=== PATIENT | male | born 1945 | race Hispanic/Latino ===

== ENCOUNTER 2017-07-25 16:00 | Inpatient (IN) | payer OTHER ==
[~2017-07-25] VITALS: Ht 162.6 cm; Wt 79.2 kg
[~2017-07-25 16:00] MED LIST: METF850T2 PO; SIMV40TA5 PO
[2017-07-25 16:40] VITALS: BP 146/72
[2017-07-25 16:41] LABS: APPEARANCE,URINE Clear (CLEAR); BILIRUBIN,URINE Negative (NEGATIVE); COLOR,URINE Yellow (YELLOW); GLUCOSE, URINE (UA) Negative (NEGATIVE); KETONES,URINE Negative (NEGATIVE); LEUKOCYTE ESTERASE ,URINE Negative (NEGATIVE); NITRATE,URINE Negative (NEGATIVE); OCCULT BLOOD,URINE Negative (NEGATIVE); PH,URINE 5.5 (5.0-8.0); PROTEIN,URINE Negative (NEGATIVE); UROBILINOGEN,URINE 0.2 mg/dL (0.2-1.0)
[2017-07-26] VITALS (22 sets, daily range): BP systolic 123–149; BP diastolic 53–86
[2017-07-26] MEDS ORDERED: WATER FOR INJECTION,STERILE 20 ML VIAL IJ ONE (08:00)
[2017-07-26] MEDS ORDERED: CEFAZOLIN SODIUM 1 GM VIAL IVP ONE (08:00)
[2017-07-26] MEDS ORDERED: SODIUM CHLORIDE 0.9% 1000ML 1,000 ML IV ONE (10:04)
[2017-07-26] MEDS ORDERED: CEFAZOLIN SODIUM 1 GM VIAL ONE ×3 (10:04→17:55)
[2017-07-26] MEDS ORDERED: WATER FOR INJECTION,STERILE 20 ML VIAL ONE ×2 (10:05→17:55)
[2017-07-26] MEDS ORDERED: KETOROLAC TROMETHAMINE 15MG/ML ONE (10:41)
[2017-07-26] MEDS ORDERED: ACETAMINOPHEN EXTRA STRENGTH 500 MG TABLET ONE (10:41)
[2017-07-26] MEDS ORDERED: CELECOXIB 200 MG CAP ONE (10:42)
[2017-07-26] MEDS ORDERED: OXYCODONE HCL 10 MG TAB.SR.12H PO ONE (10:42)
[2017-07-26] MEDS ORDERED: DEXAMETHASONE SOD PHOSPHATE 10MG/ML 1ML VIAL ONE (11:52)
[2017-07-26] MEDS ORDERED: ONDANSETRON HCL 4 MG/2 ML VIAL ONE (11:52)
[2017-07-26] MEDS ORDERED: MIDAZOLAM HCL 1 MG/ML 2ML VIAL ONE (11:52)
[2017-07-26] MEDS ORDERED: PROPOFOL 10 MG/ML 20ML VIAL IV ONE (11:52)
[2017-07-26] MEDS ORDERED: FENTANYL CITRATE PF 50 MCG/1 ML 2ML VIAL ONE (11:52)
[2017-07-26] MEDS ORDERED: LIDOCAINE PF 2% 5ML ABBOJECT ONE (11:52)
[2017-07-26] MEDS ORDERED: GLYCOPYRROLATE 0.2 MG/ML 5 ML VIAL ONE (11:52)
[2017-07-26] MEDS ORDERED: BUPIVACAINE/EPI/PF 0.25% 30ML VIAL IJ ONE (11:53)
[2017-07-26] MEDS ORDERED: TRANEXAMIC ACID 1000MG/10ML IV ONE ×2 (11:54)
[2017-07-26] MEDS ORDERED: DiphenhydrAMINE HCL 50 MG/ML VIAL IVP PRN (13:45)
[2017-07-26] MEDS ORDERED: KETOROLAC TROMETHAMINE 15MG/ML IV PRN (13:45)
[2017-07-26] MEDS ORDERED: OXYCODONE HCL 5 MG TAB PO PRN (13:45)
[2017-07-26] MEDS ORDERED: DIPHENHYDRAMINE HCL 25 MG CAPSULE PO PRN (13:45)
[2017-07-26] MEDS ORDERED: CALCIUM CARBONATE 500 MG TABLET PO PRN (13:45)
[2017-07-26] MEDS ORDERED: POTASSIUM CHLORIDE 20 MEQ ERTAB PO PRN (13:45)
[2017-07-26] MEDS ORDERED: PROMETHAZINE HCL 25 MG/ML 1ML AMPULE IM PRN (13:45)
[2017-07-26] MEDS ORDERED: TRAMADOL HCL 50 MG TABLET PO PRN (13:45)
[2017-07-26] MEDS ORDERED: LIDOCAINE HCL-MPF 1% 2ML VIAL IVP PRN (13:45)
[2017-07-26] MEDS ORDERED: TEMAZEPAM 15 MG CAPSULE PO PRN (13:45)
[2017-07-26] MEDS: ACETAMINOPHEN 325 MG TAB PO SCH ×2 (13:45→17:54)
[2017-07-26] MEDS ORDERED: POTASSIUM CHLORIDE 10% ELIXIR 20 MEQ/15 ML UDCUP PO PRN (13:45)
[2017-07-26] MEDS ORDERED: FERROUS FUMARATE 324 MG TABLET PO PRN (13:45)
[2017-07-26] MEDS ORDERED: POTASSIUM CHLORIDE 20MEQ/100ML 100 ML IV PRN (13:45)
[2017-07-26] MEDS: SODIUM CHLORIDE 0.9% 1000ML 1,000 ML IV SCH ×2 (15:44→23:34)
[2017-07-26] MEDS: INSULIN HUMULIN R 100 UNIT/ML 3ML SQ SCH ×2 (16:30→21:22)
[2017-07-26] MEDS: METFORMIN HCL 850 MG TABLET PO SCH (17:54)
[2017-07-26] MEDS: CEFAZOLIN SODIUM 1 GM VIAL IVP SCH (17:59)
[2017-07-26] MEDS ORDERED: CEFAZOLIN 2GM / 50 ML 50 ML IV SCH (18:45)
[2017-07-26] MEDS: CELECOXIB 200 MG CAP PO SCH (19:53)
[2017-07-26] MEDS: ASPIRIN 325 MG TABLET PO SCH (19:54)
[2017-07-26] MEDS: FAMOTIDINE 20MG TAB 20 MG TAB PO SCH (19:54)
[2017-07-26] MEDS: PREGABALIN 75 MG CAPSULE PO SCH (19:54)
[2017-07-27] VITALS: BP 134/72
[2017-07-27] MEDS: ACETAMINOPHEN 325 MG TAB PO SCH ×4 (03:07→20:37)
[2017-07-27] MEDS: CEFAZOLIN SODIUM 1 GM VIAL IVP SCH (03:08)
[2017-07-27 04:00] VITALS: BP 139/68
[2017-07-27 05:33] LABS: HEMATOCRIT 36.3 % (42-54); MEAN CORPUSCULAR HEMOGLOBIN 30.3 pg (27.0-33.0); MEAN CORPUSCULAR VOLUME 86.5 fL (79-99); PLATELET COUNT (AUTO) 233 K/uL (130-400); RED CELL DISTRIBUTION WIDTH 13.1 % (11.0-15.5); WHITE BLOOD COUNT (AUTO) 16.5 K/uL (4.8-10.8)
[2017-07-27 05:40] LABS: CREATININE 0.9 mg/dL (0.5-1.5); POTASSIUM 3.9 mmol/L (3.5-5.1)
[2017-07-27] MEDS: INSULIN HUMULIN R 100 UNIT/ML 3ML SQ SCH ×4 (06:02→21:00)
[2017-07-27] MEDS: POLYETHYLENE GLYCOL 3350 17 GM POWD.PACK PO SCH (08:10)
[2017-07-27] MEDS: ATORVASTATIN CALCIUM 20 MG TABLET PO SCH (08:10)
[2017-07-27] MEDS: CELECOXIB 200 MG CAP PO SCH ×2 (08:10→20:37)
[2017-07-27] MEDS: ASPIRIN 325 MG TABLET PO SCH ×2 (08:10→20:37)
[2017-07-27] MEDS: FAMOTIDINE 20MG TAB 20 MG TAB PO SCH ×2 (08:10→20:37)
[2017-07-27] MEDS: PREGABALIN 75 MG CAPSULE PO SCH ×2 (08:10→20:37)
[2017-07-27] MEDS: METFORMIN HCL 850 MG TABLET PO SCH ×2 (08:17→16:33)
[2017-07-27] MEDS: OXYCODONE HCL 5 MG TAB PO PRN ×2 (08:18→14:28)
[2017-07-27 08:51] VITALS: BP 148/68
[2017-07-27] MEDS: TAMSULOSIN HCL 0.4 MG CAP.ER.24H PO SCH (09:00)
[2017-07-27] MEDS: SODIUM CHLORIDE 0.9% 1000ML 1,000 ML IV SCH (09:44)
[2017-07-27 11:26] VITALS: BP 127/63
[2017-07-27] MEDS: PSYLLIUM SEED 1 EACH PACKET PO SCH (12:46)
[2017-07-27 16:19] VITALS: BP 130/79
[2017-07-27 19:00] VITALS: BP 148/78
[2017-07-28 00:10] VITALS: BP 138/74
[2017-07-28] MEDS: ACETAMINOPHEN 325 MG TAB PO SCH ×3 (02:14→14:09)
[2017-07-28 04:00] VITALS: BP 117/70
[2017-07-28 05:51] LABS: HEMATOCRIT 33.2 % (42-54); MEAN CORPUSCULAR HEMOGLOBIN 29.4 pg (27.0-33.0); MEAN CORPUSCULAR HGB CONC 34.4 g/dL (32.0-36.0); MEAN CORPUSCULAR VOLUME 85.6 fL (79-99); PLATELET COUNT (AUTO) 203 K/uL (130-400); RED BLOOD CELL COUNT(AUTO) 3.88 MIL/uL (4.50-6.20); RED CELL DISTRIBUTION WIDTH 13.3 % (11.0-15.5); WHITE BLOOD COUNT (AUTO) 11.3 K/uL (4.8-10.8)
[2017-07-28 06:06] LABS: CREATININE 0.8 mg/dL (0.5-1.5); POTASSIUM 3.6 mmol/L (3.5-5.1)
[2017-07-28 06:58] VITALS: BP 120/75
[2017-07-28] MEDS: INSULIN HUMULIN R 100 UNIT/ML 3ML SQ SCH ×3 (07:06→17:15)
[2017-07-28] MEDS: FAMOTIDINE 20MG TAB 20 MG TAB PO SCH (08:09)
[2017-07-28] MEDS: CELECOXIB 200 MG CAP PO SCH (08:09)
[2017-07-28] MEDS: PREGABALIN 75 MG CAPSULE PO SCH (08:09)
[2017-07-28] MEDS: ATORVASTATIN CALCIUM 20 MG TABLET PO SCH (08:09)
[2017-07-28] MEDS: POLYETHYLENE GLYCOL 3350 17 GM POWD.PACK PO SCH (08:09)
[2017-07-28] MEDS: ASPIRIN 325 MG TABLET PO SCH (08:09)
[2017-07-28] MEDS: TAMSULOSIN HCL 0.4 MG CAP.ER.24H PO SCH (08:10)
[2017-07-28] MEDS: OXYCODONE HCL 5 MG TAB PO PRN (08:11)
[2017-07-28] MEDS: METFORMIN HCL 850 MG TABLET PO SCH ×2 (09:05→17:14)
[2017-07-28 11:00] VITALS: BP 110/73
[2017-07-28] MEDS: PSYLLIUM SEED 1 EACH PACKET PO SCH (11:43)
[2017-07-28] MEDS ORDERED: BISACODYL 5 MG TABLET.DR PO PRN (13:45)
[2017-07-28 16:00] VITALS: BP 125/55
[2017-07-28] MEDS ORDERED: HYDR-309 PO (18:15)
[2017-07-28] MEDS ORDERED: ASPI-1012 PO (18:15)
[2017-07-29] MEDS ORDERED: BISACODYL 10 MG SUPP.RECT RC PRN (13:45)
== END 2017-07-28 20:43 | DRG 470 ==
LOC: DAHIP 07-26 09:40 → 4AH 07-26 14:50
PROVIDERS: ADMIT Orthopaedic Surgery; ATTEND Orthopaedic Surgery
PROC: 0SRD0J9 Replacement of Left Knee Joint with Synthetic Substitute, Cemented, Open Approach (ICD-10-PCS; principal; 2017-07-26 11:55)
DX: M17.12 Unilateral primary osteoarthritis, left knee (principal); E11.9 Type 2 diabetes mellitus without complications; E78.5 Hyperlipidemia, unspecified; Z83.3 Family history of diabetes mellitus
CPT/HCPCS: 36415; 80048; 81003; 82948; 85027; 96374; A4218; C1713; J0690; J1100; J1815; J1885; J2001; J2250; J2405; J2704; J3010; J3490; J7030

== ENCOUNTER 2017-11-17 06:41 | Day surgery (SDC) | payer OTHER ==
[2017-11-16 16:19] VITALS: BP 139/72
[2017-11-17] VITALS (15 sets, daily range): BP systolic 109–138; BP diastolic 58–73
[~2017-11-17] VITALS: Ht 162.6 cm; Wt 44.5 kg
[2017-11-17] MEDS: CEFAZOLIN SODIUM 1 GM VIAL IVP SCH ×2 (06:00→09:10)
[~2017-11-17 06:41] MED LIST changes: +ASPI-1012 PO; +HYDR-309 PO
[2017-11-17] MEDS ORDERED: SODIUM CHLORIDE 0.9% 1000ML 1,000 ML IV ONE (08:13)
[2017-11-17] MEDS ORDERED: PROPOFOL 10 MG/ML 20ML VIAL IV ONE (08:14)
[2017-11-17] MEDS ORDERED: FENTANYL CITRATE PF 50 MCG/1 ML 5ML AMP IV ONE (08:15)
[2017-11-17] MEDS ORDERED: MIDAZOLAM HCL 1 MG/ML 2ML VIAL ONE (08:15)
[2017-11-17] MEDS ORDERED: ROPIVACAINE 0.5% 5MG/ML 30ML IJ ONE (08:16)
[2017-11-17] MEDS ORDERED: TERB250T51 PO (08:48)
[2017-11-17] MEDS ORDERED: CEFAZOLIN SODIUM 1 GM VIAL ONE (10:03)
[2017-11-17] MEDS ORDERED: NAPR-1192 PO (11:32)
[2017-11-17] MEDS ORDERED: CEPH500B PO (11:32)
[2017-11-17] MEDS ORDERED: MEPERIDINE-PF 25 MG/ML SYG ONE ×2 (11:46→12:00)
== END 2017-11-17 13:30 | disposition home or self-care (01) ==
LOC: DAH 06:41
PROVIDERS: ATTEND Orthopaedic Surgery
DX: M75.102 Unspecified rotator cuff tear or rupture of left shoulder, not specified as traumatic (principal); M19.012 Primary osteoarthritis, left shoulder; M75.42 Impingement syndrome of left shoulder; E66.9 Obesity, unspecified; E11.9 Type 2 diabetes mellitus without complications; E78.5 Hyperlipidemia, unspecified; M19.90 Unspecified osteoarthritis, unspecified site; Z98.890 Other specified postprocedural states; Z79.899 Other long term (current) drug therapy; G89.29 Other chronic pain
CPT/HCPCS: 23120; 23412; 82948 ×2; A4218; A4565; A4649 ×3; A4930 ×2; A6204; C1763; G0168; J0690 ×2; J2175 ×2; J2250; J2704; J2795; J3010; J7030 ×2

== ENCOUNTER 2017-12-10 01:18 | Emergency (ER) | payer OTHER ==
[~2017-12-10 01:18] MED LIST changes: -ASPI-1012 PO; +CEPH500B PO; +NAPR-1192 PO; +TERB250T51 PO
[2017-12-10 01:40] LABS: BASOPHILS % (AUTO) 0.6 % (0.0-5.0); EOSINOPHILS % (AUTO) 2.9 % (0.0-8.0); LYMPHOCYTES % (AUTO) 14.9 % (21.0-51.0); MEAN CORPUSCULAR HEMOGLOBIN 28.7 pg (27.0-33.0); MEAN CORPUSCULAR HGB CONC 33.7 g/dL (32.0-36.0); MEAN CORPUSCULAR VOLUME 85.2 fL (79-99); MONOCYTES % (AUTO) 7.3 % (3.0-13.0); NEUTROPHILS % (AUTO) 74.3 % (40.0-77.0); PLATELET COUNT (AUTO) 281 K/uL (130-400); RED BLOOD CELL COUNT(AUTO) 5.16 MIL/uL (4.50-6.20); RED CELL DISTRIBUTION WIDTH 14.1 % (11.0-15.5); WHITE BLOOD COUNT (AUTO) 13.7 K/uL (4.8-10.8)
[2017-12-10 01:41] LABS: APPEARANCE,URINE CLEAR (CLEAR); BILIRUBIN,URINE SMALL (NEGATIVE); COLOR,URINE YELLOW (YELLOW); GLUCOSE, URINE (UA) NEGATIVE (NEGATIVE); KETONES,URINE NEGATIVE (NEGATIVE); LEUKOCYTE ESTERASE ,URINE NEGATIVE (NEGATIVE); NITRATE,URINE NEGATIVE (NEGATIVE); OCCULT BLOOD,URINE LARGE (NEGATIVE); PH,URINE 5.5 (5.0-8.0); PROTEIN,URINE 100 (NEGATIVE)
[2017-12-10 01:55] LABS: INR 0.95 (0.85-1.15); PARTIAL THROMBOPLASTIN TIME 25.5 SEC (26.3-35.5)
[2017-12-10 01:56] LABS: BACTERIA,URINE None Seen /HPF (None Seen); CALCIUM OXALATE CRYSTALS,UR Moderate /LPF (None Seen); MUCUS,URINE Few LPF (None Seen); SQUAMOUS EPITHELIAL CELL,UR Few /HPF (0-2); WBC,URINE 0-1 /HPF (0-1)
[2017-12-10 02:06] LABS: CREATININE 0.9 mg/dL (0.5-1.5); POTASSIUM 3.9 mmol/L (3.5-5.1)
[2017-12-10 02:10] LABS: ALBUMIN 3.7 g/dL (3.5-5.0); BILIRUBIN,TOTAL 0.5 mg/dL (0.2-1.0); CREATINE KINASE MB 1.1 ng/mL (0.5-3.6); TOTAL PROTEIN, SERUM 7.4 g/dL (6.0-8.3)
== END 2017-12-10 04:22 | disposition home or self-care (01) ==
LOC: EDH 01:18
DX: R10.30 Lower abdominal pain, unspecified (principal); R31.9 Hematuria, unspecified; E11.9 Type 2 diabetes mellitus without complications; I10 Essential (primary) hypertension; E78.5 Hyperlipidemia, unspecified; Z79.82 Long term (current) use of aspirin; Z79.899 Other long term (current) drug therapy; Z98.890 Other specified postprocedural states
CPT/HCPCS: 36415; 71045; 74018; 74176; 80053; 81001; 82150; 82550; 82553; 85025; 85610; 85730; 93005

== ENCOUNTER 2021-06-27 23:28 | Emergency (ER) | payer OTHER ==
[~2021-06-27] VITALS: Ht 162.6 cm; Wt 72.6 kg
[~2021-06-27 23:28] MED LIST changes: -CEPH500B PO; -HYDR-309 PO; +METF-445 PO; -METF850T2 PO; -NAPR-1192 PO; +SIMV-46 PO; -SIMV40TA5 PO; +TAMS-1 PO; -TERB250T51 PO
[2021-06-28 00:14] LABS: APPEARANCE,URINE Clear (CLEAR); BILIRUBIN,URINE Negative (NEGATIVE); COLOR,URINE Yellow (YELLOW); GLUCOSE, URINE (UA) 500 mg/dL (NEGATIVE); KETONES,URINE 15 mg/dL (NEGATIVE); LEUKOCYTE ESTERASE ,URINE Negative (NEGATIVE); NITRATE,URINE Negative (NEGATIVE); OCCULT BLOOD,URINE Small (NEGATIVE); PROTEIN,URINE POS 1+ mg/dL (NEGATIVE); UROBILINOGEN,URINE 0.2 mg/dL (0.2-1.0)
[2021-06-28 00:21] LABS: BASOPHILS % (AUTO) 0.3 % (0.0-5.0); EOSINOPHILS % (AUTO) 0.1 % (0.0-8.0); LYMPHOCYTES % (AUTO) 12.3 % (21.0-51.0); MEAN CORPUSCULAR HEMOGLOBIN 29.7 pg (27.0-33.0); MEAN CORPUSCULAR HGB CONC 34.9 g/dL (32.0-36.0); MEAN CORPUSCULAR VOLUME 85.1 fL (79-99); MONOCYTES % (AUTO) 5.1 % (3.0-13.0); NEUTROPHILS % (AUTO) 81.8 % (40.0-77.0); PLATELET COUNT (AUTO) 242 K/uL (130-400); RED BLOOD CELL COUNT(AUTO) 5.52 MIL/uL (4.50-6.20); RED CELL DISTRIBUTION WIDTH 11.9 % (11.0-15.5); WHITE BLOOD COUNT (AUTO) 11.3 K/uL (4.8-10.8)
[2021-06-28 00:29] LABS: CARBON DIOXIDE 25 mmol/L (21-32); CHLORIDE 94 mmol/L (101-111); GLOMERULAR FILTR. RATE CALC 77 mL/min (>60); GLUCOSE,RANDOM 233 mg/dL (70-105); POTASSIUM 3.7 mmol/L (3.5-5.1); SODIUM SERUM 130 mmol/L (136-145); UREA NITROGEN, BLOOD 13 mg/dL (7-18)
[2021-06-28 00:31] LABS: WBC,URINE 0-1 /HPF (0-1)
[2021-06-28 00:32] LABS: BACTERIA,URINE None Seen /HPF (None Seen); MUCUS,URINE Few LPF (None Seen); SQUAMOUS EPITHELIAL CELL,UR Rare /HPF (0-2)
[2021-06-28 00:35] LABS: ALANINE AMINOTRANSFERASE 22 U/L (12-78); ALBUMIN 3.8 g/dL (3.5-5.0); ASPARTATE AMINOTRANSFERASE 15 U/L (10-37); BILIRUBIN,TOTAL 0.6 mg/dL (0.2-1.0); LIPASE < 50 U/L (114-286); TOTAL PROTEIN, SERUM 7.6 g/dL (6.0-8.3)
[2021-06-28] MEDS ORDERED: IOHEXOL 350 MG/ML 100ML INFUS..BTL IV ONE (01:14)
[2021-06-28] MEDS: 0.9%NACL 1000ML 1,000 ML IV ONE (01:15)
[2021-06-28] MEDS: ONDANSETRON 4MG INJ IVP ONE (01:15)
[2021-06-28] MEDS: METOCLOPRAMIDE 10 MG/2 ML VIAL IVP ONE (01:15)
[2021-06-28 01:52] VITALS: BP 150/82
[2021-06-28] MEDS ORDERED: ONDA4TAB10 PO (02:32)
[2021-06-28] MEDS ORDERED: DICY20TA2 PO (02:32)
== END 2021-06-28 02:57 | disposition home or self-care (01) ==
LOC: EDH 23:28
DX: E86.9 Volume depletion, unspecified (principal); R10.9 Unspecified abdominal pain; E11.9 Type 2 diabetes mellitus without complications; E78.00 Pure hypercholesterolemia, unspecified; E78.5 Hyperlipidemia, unspecified; Z79.84 Long term (current) use of oral hypoglycemic drugs; Z79.899 Other long term (current) drug therapy
CPT/HCPCS: 36415; 74177; 80053; 81001; 83690; 85025; 93005; 96374; 96375; 99285; J2405; J2765; Q9967

== ENCOUNTER 2022-09-16 06:48 | Day surgery (SDC) | payer MEDICARE ==
[2022-09-13 13:17] VITALS: BP 140/75
[2022-09-13 13:18] LABS: BASOPHILS % (AUTO) 0.6 % (0.0-5.0); EOSINOPHILS % (AUTO) 1.5 % (0.0-8.0); HEMATOCRIT 45.5 % (42-54); LYMPHOCYTES % (AUTO) 26.1 % (21.0-51.0); MEAN CORPUSCULAR VOLUME 87.8 fL (79-99); MONOCYTES % (AUTO) 10.4 % (3.0-13.0); PLATELET COUNT (AUTO) 203 K/uL (130-400); RED BLOOD CELL COUNT(AUTO) 5.18 MIL/uL (4.50-6.20); RED CELL DISTRIBUTION WIDTH 12.6 % (11.0-15.5); WHITE BLOOD COUNT (AUTO) 8.1 K/uL (4.8-10.8)
[2022-09-13 14:11] LABS: ALBUMIN 3.6 g/dL (3.5-5.0); BILIRUBIN,DIRECT 0.1 mg/dL (0.0-0.3); CREATININE 0.8 mg/dL (0.5-1.5); POTASSIUM 3.9 mmol/L (3.5-5.1); TOTAL PROTEIN, SERUM 6.9 g/dL (6.0-8.3)
[~2022-09-16] VITALS: Ht 162.6 cm; Wt 71.8 kg
[2022-09-16] VITALS (15 sets, daily range): BP systolic 116–157; BP diastolic 50–89
[~2022-09-16 06:48] MED LIST changes: +DONE10TA43 PO
[2022-09-16] MEDS ORDERED: BUPIVACAINE/EPI/PF 0.25% 10ML VIAL IJ ONE (07:57)
[2022-09-16] MEDS ORDERED: 0.9%NACL 1000ML 1,000 ML IV ONE (08:14)
[2022-09-16] MEDS: CEFAZOLIN SODIUM 2 GM VIAL ONE ×2 (08:28→09:30)
[2022-09-16] MEDS ORDERED: MIDAZOLAM HCL 1 MG/ML 2ML VIAL ONE (09:37)
[2022-09-16] MEDS ORDERED: PROPOFOL 10 MG/ML 20ML VIAL IV ONE (09:37)
[2022-09-16] MEDS ORDERED: ROCURONIUM 10MG/1ML SYR 10 MG/ML ML ONE (09:37)
[2022-09-16] MEDS ORDERED: SUCCINYLCHOLINE 200MG/10ML SYR ONE (09:37)
[2022-09-16] MEDS ORDERED: FENTANYL CITRATE PF 50 MCG/1 ML 2ML VIAL ONE (09:38)
[2022-09-16] MEDS ORDERED: EPHEDRINE SULFATE 50 MG/ML AMPULE ONE (09:55)
[2022-09-16] MEDS ORDERED: PHENYLEPHRINE HCL 10 MG/ML 1ML VIAL IV ONE (10:22)
== END 2022-09-16 12:00 | disposition home or self-care (01) ==
LOC: DAH 06:48
PROVIDERS: ATTEND Surgery
DX: L02.212 Cutaneous abscess of back [any part, except buttock and flank] (principal); Z20.822 Contact with and (suspected) exposure to COVID-19; I10 Essential (primary) hypertension; E11.9 Type 2 diabetes mellitus without complications; E78.00 Pure hypercholesterolemia, unspecified; Z98.890 Other specified postprocedural states; Z79.84 Long term (current) use of oral hypoglycemic drugs; Z79.899 Other long term (current) drug therapy
CPT/HCPCS: 87426; 93005; 80076; 80048; 85025; 36415; 11403; 82948 ×2; A6260; A4663; A4606; A4452; J3010; J0330; J7030; J3490 ×2; J2250; J2704; J2370; J0690; A4930; A4215; A4223; A4222; A4221

== ENCOUNTER 2024-10-11 18:17 | Emergency (ER) | payer MEDICARE, OTHER ==
[~2024-10-11] VITALS: Ht 162.6 cm; Wt 68.0 kg
--- NOTE | 2024-10-11 18:30 | ERN ---
ED Note History of Present Illness Stated Complaint: FALL Chief Complaint: Mechanical Fall Time Seen by MD: 18:22 Dictation: PATIENT IS A 79-YEAR-OLD MALE HERE WITH A SAME LEVEL SLIP FALL LANDED ON HIS LEFT SHOULDER AND HIT HIS CHIN ON THE GROUND. SMALL LACERATION NOTED TO THE CHIN. ALSO AN ABRASION NOTED TO THE ANTERIOR LEFT SHOULDER WITH DECREASED RANGE OF MOTION SECONDARY TO PAIN. NO BLOOD THINNERS, DID NOT HIT HIS HEAD. HE HAS NO MIDLINE SPINE PAIN. NEUROLOGICALLY INTACT SPEECH IS CLEAR AND GAIT IS STEADY TO TRIAGE. LAST TETANUS SHOT IS UNKNOWN HE HAS A DIABETIC Allergies: Coded Allergies: No Known Allergies (Unverified Allergy, Unknown, 04/16/14) Home Meds Reported Medications Donepezil HCl (Donepezil HCl) 10 Mg Tablet, 10 MG PO HS, TAB 09/13/22 Tamsulosin HCl (Flomax) 0.4 Mg Cap.er.24h, 0.4 MG PO HS, CAPSULE.DR 09/13/19 Metformin HCl (Metformin HCl) 850 Mg Tablet, 850 MG PO BID, TAB 03/06/17 Simvastatin (Simvastatin) 40 Mg Tablet, 40 MG PO DAILY, TAB 03/06/17 Past Medical History Past Medical History: Diabetes-Type II Additional Past Medical Hx: PROSTATE Surgical History: Other Surgical History Other: LT SHOULDER, CERVICAL AND LT KNEE SX RN Note Reviewed/Agreed w/PFSH: Yes Review of System Dictation CONSTITUTIONAL: NEGATIVE EXCEPT FOR HPI HEAD/FACE: NEGATIVE EXCEPT FOR HPI CHIN LACERATION EENT: NEGATIVE EXCEPT FOR HPI RESPIRATORY: NEGATIVE EXCEPT FOR HPI GASTROINTESTINAL/ABDOMINAL: NEGATIVE EXCEPT FOR HPI GENITOURINARY: NEGATIVE EXCEPT FOR HPI MUSCULOSKELETAL: NEGATIVE EXCEPT FOR HPI LEFT SHOULDER PAIN/ABRASION INTEGUMENTARY: NEGATIVE EXCEPT FOR HPI NEUROLOGICAL/PSYCH: NEGATIVE EXCEPT FOR HPI HEMATOLOGIC/LYMPHATIC: NEGATIVE EXCEPT FOR HPI ALL SYSTEMS NEGATIVE, EXCEPT NOTED ABOVE. 13 POINT REVIEW OF SYSTEMS ASSESSED AND ALL NEGATIVE EXCEPT FOR ABOVE. Initial Vital Sign VS Vital Signs Date Time Temp Pulse Resp B/P (MAP) Pulse Ox O2 Delivery O2 Flow Rate FiO2 10/11/24 18:19 98.1 98 18 178/77 100 Room Air Physical Exam Dictation VITAL SIGNS REVIEWED GENERAL APPEARANCE: ALERT, ORIENTED X 3, MILD ACUTE DISTRESS, WELL DEVELOPED, NOURISHED. HEAD AND FACE: CHIN LACERATION. , 1.5 cm EYES: PERRL, PINK CONJUNCTIVAS, EYELID NO TRAUMA, ANTERIOR CHAMBER WITH ARCUS SENILIS. EARS: PINNAS INTACT AND NO SIGNS OF TRAUMA OR ERYTHEMA EAR CANALS CLEAR AND NO DISCHARGE TM NO ERYTHEMA NOSE: NO DISCHARGE, NO BLEEDING. OROPHARYNX: MOUTH NORMAL, TONGUE PINK, PHARYNX CLEAR,NO ERYTHEMA, TONSILS NO EXUDATES, NO ABSCESSES NOTED, MUCOUS MEMBRANE MOIST NECK: SUPPLE, NON-TENDER, NO THYROMEGALY, NO MASSES, NO JVD, NO BRUITS BREAST:DEFERRED CHEST:NO TENDERNESS, NO CREPITUS, NO PARADOXICAL MOVEMENT, NO RETRACTIONS LUNGS:CLEAR, WELL-VENTILATED, SYMMETRIC, NO RALES, NO WHEEZING, NO RHONCHI, NO STRIDOR, GOOD BREATH SOUNDS BILATERALLY HEART: REGULAR RATE, REGULAR RHYTHM, NO MURMUR, NO GALLOPS VASCULAR: NO PERIPHERAL EDEMA, ABDOMEN: SOFT, POSITIVE BOWEL SOUNDS, NONDISTENDED, NO GUARDING, NONTENDER, NO REBOUND, NO MASSES NO HEPATOMEGALY, NO SPLENOMEGALY, NO HERNANDEZ'S SIGN, NO HERNIAS. RECTAL: DEFERRED GENITAL: DEFERRED NEUROLOGICAL: NORMAL SPEECH, MOTOR FUNCTION INTACT, SENSORY FUNCTION INTACT MUSCULOSKELETAL: NECK NONTENDER, FULL RANGE OF MOTION, BACK NONTENDER, FULL RANGE OF MOTION, NO MIDLINE SPINE PAIN STEP-OFFS EXTREMITIES: ABRASION WITH SWELLING TO LEFT ANTERIOR SHOULDER. DECREASED RANGE OF MOTION SECONDARY TO PAIN SKIN: COLOR PINK, DRY ABRASION LEFT ANTERIOR SHOULDER. LYMPHATIC: DEFERRED Results (Laboratory/Radiology) Laboratory/Radiology [facility] [place] COMP 2+VWS LT CLINICAL HISTORY: LEFT ANTERIOR SHOULDER PAIN STATUS POST FALL COMPARISON: None TECHNIQUE: 3 images were obtained. FINDINGS: There is superior subluxation of the humeral head which appears to abut against the acromion. Previously demonstrated is widening of the AC joint distance 1.5 cm with calcifications and soft. This again demonstrated is a small calcification density humeral head at the anticipated site of the supraspinatus tendon. There is no identified acute bony fracture. Soft tissues otherwise appear unremarkable. IMPRESSION: There are. 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 Labs Reviewed?: Yes ED Course ED Course Orders Procedure Category Date Status Time Shoulder Comp 2+Vws Lt RAD 10/11/24 Resulted 18:22 Cephalexin 500 Mg PHA 10/11/24 Complete Capsule (Keflex 500 Mg 18:30 Acetaminophen 500mg PHA 10/11/24 Complete Tab (Tylenol 500mg T 18:30 Tetanus,Diphtheria PHA 10/11/24 Complete Tox [Adult] (Diphther 18:30 Dermabond (Dermabond) PHA 10/11/24 Complete 21:18 Current Medications Medications (Trade) Dose Ordered Sig/Jeannette Route PRN Reason Start Time Stop Time Status Last Admin Dose Admin Acetaminophen (TYLenol 500MG TAB) 1,000 mg ONCE ONCE PO 10/11/24 18:30 10/11/24 18:31 DC Cephalexin (Keflex 500 MG CAPS) 1,000 mg ONCE ONCE PO 10/11/24 18:30 10/11/24 18:31 DC Octyl Cyanoacrylate (Dermabond) 1 each STK-MED ONCE TP 10/11/24 21:18 10/11/24 21:19 DC Tetanus/ Diphtheria Toxoids Adsorbed (DiphthERIA-teTANUS TOXOID [ADULT]/ DECAVAC) 0.5 ml ONCE ONCE IM 10/11/24 18:30 10/11/24 18:31 DC Vital Signs Date Time Temp Pulse Resp B/P (MAP) Pulse Ox O2 Delivery O2 Flow Rate FiO2 10/11/24 18:19 98.1 98 18 178/77 100 Room Air 2121/patient's x-ray findings discussed with him. He will be discharged home with fall/left shoulder contusion/chin lack closed head injury and fall Medical Decision Making MDM Medical decision-making based on x-ray of left shoulder, tetanus update and laceration repair of chin Left shoulder x-ray negative except for chronic arthritic changes Chin laceration was repaired with Dermabond Patient discharged home neurologically intact speech is clear Procedure Procedure Dictation: 2114/procedure explained to patient and they agreed to proceed 1.5 cm chin laceration cleaned with wound cleanser No debridement necessary Laceration approximated with Dermabond and Steri-Strips Single-layer closure Patient tolerated well DX & DISP Disposition: Discharge Departure Impression: Primary Impression: Chin laceration Additional Impressions: Facial contusion, Contusion of left shoulder, initial encounter, Fall Condition: Stable Scripts Cephalexin (Cephalexin) 500 Mg Tablet 500 MG PO TID for 7 Days, #21 TAB Prov: ADEBAYO COX RACETRACK STEWARD 10/11/24 Additional Instructions: Follow-up with primary care provider in 1 to 2 days. Take medications as directed here in the emergency room. Okay to continue home medications unless otherwise discussed during your visit in the emergency room today. Return to your nearest emergency room if symptoms worsen or if there is no improvement. Call 911 if you need immediate assistance. Take Tylenol or Motrin [id number] as needed and if no contraindications are present. Increase oral hydration. A wound culture or urine culture was ordered here in the emergency room department please follow-up with primary care provider and advise them to get repeat ports from our facility. If you had any Rafael wrap/splints that were applied here, please do not remove them until you see your primary care or specialty. Keep laceration repair to chin clean and dry. Apply cool compresses to pain t hree to 4 times a day. Take antibiotics as directed until gone. See your primary care doctor for follow up and management Referrals: ANGIE PIERRE MD (PCP) Time of Disposition: 21:27 I have reviewed the case, and I agree with, Diagnosis and Plan ADEBAYO COX NP Oct 11, 2024 18:30
--- NOTE | 2024-10-11 20:21 | HMCIMG ---
SHOULDER COMP 2+VWS LT CLINICAL HISTORY: LEFT ANTERIOR SHOULDER PAIN STATUS POST FALL COMPARISON: None TECHNIQUE: 3 images were obtained. FINDINGS: There is superior subluxation of the humeral head which appears to abut against the acromion. Previously demonstrated is widening of the AC joint distance 1.5 cm with calcifications and soft. This again demonstrated is a small calcification density humeral head at the anticipated site of the supraspinatus tendon. There is no identified acute bony fracture. Soft tissues otherwise appear unremarkable. IMPRESSION: There are. 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
[2024-10-11] MEDS ORDERED: OCTYL 2-CYANOACRYLATE 1 EACH TP ONE (21:18)
[2024-10-11] MEDS ORDERED: CEPH500T PO (21:28)
--- NOTE | 2024-10-11 22:14 | NUR ---
SWELLING, ABRASION, BRUISING NOTED TO LEFT SIDE OF FACE
[2024-10-11 22:15] VITALS: BP 139/59; PULSE 87; RESP 16; TEMP 98.2; O2SAT 98
[2024-10-11] MEDS: cePHALexin 500 MG CAPSULE PO ONE (22:26)
[2024-10-11] MEDS: acetaMINOPHEN 500 MG TABLET PO ONE (22:27)
[2024-10-11] MEDS: teTANUS/diphthERIA TOXOID [ADULT] 0.5 ML VIAL IM ONE (22:28)
== END 2024-10-11 22:29 | disposition home or self-care (01) ==
LOC: EDH 18:17
DX: S01.81XA Laceration without foreign body of other part of head, initial encounter (principal); S40.012A Contusion of left shoulder, initial encounter; E11.9 Type 2 diabetes mellitus without complications; Z79.84 Long term (current) use of oral hypoglycemic drugs; Z79.899 Other long term (current) drug therapy; Z98.890 Other specified postprocedural states; W18.39XA Other fall on same level, initial encounter; Y93.89 Activity, other specified; Y92.89 Other specified places as the place of occurrence of the external cause; Y99.8 Other external cause status
CPT/HCPCS: 12011; 73030; 90471; 90714; 99284